=== PATIENT | male | born 1975 | race Two or more races ===

== ENCOUNTER → 2022-04-21 | Outpatient (CLI) | payer OTHER | END | disposition home or self-care (01) | LOC: PPH VACUNA 08:23 | PROVIDERS: ATTEND Emergency Medicine Pediatric Emergency Medicine | DX: Z23 Encounter for immunization (principal) ==

== ENCOUNTER 2024-07-29 10:04 | Outpatient (CLI) | payer OTHER ==
[2024-07-29 13:06] LABS: URINE APPEARANCE Clear; URINE BILIRRUBIN Negative (NEGATIVE); URINE BLOOD NHT; URINE COLOR Yellow; URINE GLUCOSE Negative (NEGATIVE); URINE KETONE Negative (NEGATIVE); URINE LEUKOCYTE Negative; URINE NITRATE Negative; URINE PROTEIN Negative (NEGATIVE)
[2024-07-29 13:10] LABS: URINE EPITHELIAL CELLS 1.7 uL (0.0-38.8); URINE RBC 41.3 uL (0.0-20.8)
[2024-07-29 13:33] LABS: URINE BACTERIA 1.2 uL (0.0-1933); URINE CAST 0.14 uL (0.0-1.40); URINE WBC 0.9 uL (0.0-23.2)
== END 2024-07-29 10:13 | disposition home or self-care (01) ==
LOC: LAB 10:04
PROVIDERS: ATTEND Surgery
DX: N39.0 Urinary tract infection, site not specified (principal); N40.1 Benign prostatic hyperplasia with lower urinary tract symptoms

== ENCOUNTER 2024-12-14 09:26 | Emergency (ER) | payer OTHER ==
[~2024-12-14] VITALS: Ht 182.9 cm; Wt 88.5 kg
[2024-12-14 10:17] VITALS: BP 143/76; O2SAT 100
== END 2024-12-14 10:19 | disposition home or self-care (01) ==
LOC: ER 09:34
DX: Z48.02 Encounter for removal of sutures (principal)